=== PATIENT | female | born 1925 | race Caucasian/White ===

== ENCOUNTER 2017-02-26 03:39 | Emergency (ER) | payer OTHER ==
[~2017-02-26] VITALS: Ht 152.4 cm; Wt 60.0 kg
[2017-02-26 03:44] VITALS: Ht 152.4 cm; Wt 60.0 kg
[2017-02-26] MEDS ORDERED: SOD CHLORIDE 0.9% 500 ML IV STA (03:53)
[2017-02-26] MEDS ORDERED: ACETAMINOPHEN 500 MG TAB PO STA (03:56)
--- NOTE | 2017-02-26 04:28 | ERD ---
ER Documentation Chief Complaint Date/Time DATE: 02/26/17 TIME: 04:26 Chief Complaint fell down at [facility], R head lac, no KO HPI 89-year-old female suffered from a fall at a [facility] facility in which she hit her head. No other injuries were noticed. The patient does suffer from advanced dementia. She denies any pain currently according to staff and the patient she did not lose any consciousness. States that she feels well currently denies any chest pain shortness of breath. Does say she has some pain in the top of her head at the laceration site with no other pain most of history is taken from the paramedics and patient is unknown if the fall was witnessed. ROS All systems reviewed and are negative except as per history of present illness. Physical Exam Vitals Vital Signs Date Time Temp Pulse Resp B/P Pulse Ox O2 Delivery O2 Flow Rate FiO2 02/26/17 05:19 98.1 72 19 138/62 98 Room Air 02/26/17 03:44 97.9 58 19 144/69 97 Physical Exam Const: [] No distress Head: 1.5 cm laceration to right upper forehead without active bleeding. Eyes: Normal Conjunctiva, EOMI, PRL ENT: Normal External Ears, Nose and Mouth., Tympanic membranes without fluid or blood Neck: Full range of motion..~ No meningismus. Resp: Clear to auscultation bilaterally Cardio: Regular rate and rhythm, no murmurs Abd: Soft, non tender, non distended. Normal bowel sounds Skin: No petechiae or rashes Back: No midline or flank tenderness Ext: No cyanosis, or edema, no deformities or injury sites in any extremities , 5 out of 5 muscle strength all 4 extremities distal and proximal Neur: Awake and alert and oriented 2, cranial nerves II through XII intact, finger to nose cerebellar tests grossly within normal limits, gait not tested Psych: Normal Mood and Affect Result Diagram: 02/26/1742402/26/17424 Results 24 hrs Laboratory Tests Test 02/26/17 04:25 White Blood Count 6.010^3/ul Red Blood Count 3.8810^6/ul Hemoglobin 12.9g/dl Hematocrit 39.0% Mean Corpuscular Volume 100.5fl Mean Corpuscular Hemoglobin 33.2pg Mean Corpuscular Hemoglobin Concent 33.1g/dl Red Cell Distribution Width 12.8% Platelet Count 02576^3/UL Mean Platelet Volume 9.6fl Neutrophils % 55.5% Lymphocytes % 31.1% Monocytes % 9.2% Eosinophils % 3.3% Basophils % 0.7% Nucleated Red Blood Cells % 0.0/100WBC Neutrophils # 3.310^3/ul Lymphocytes # 1.910^3/ul Monocytes # 0.610^3/ul Eosinophils # 0.210^3/ul Basophils # 0.010^3/ul Nucleated Red Blood Cells # 0.010^3/ul Prothrombin Time 13.4Sec Prothrombin Time Ratio 1.0 INR International Normalized Ratio 1.02 Activated Partial Thromboplast Time 27.5Sec Sodium Level 136mmol/L Potassium Level 3.4mmol/L Chloride Level 103mmol/L Carbon Dioxide Level 28mmol/L Anion Gap 8 Blood Urea Nitrogen 18mg/dl Creatinine 0.73mg/dl Glucose Level 86mg/dl Calcium Level 9.2mg/dl Troponin I < 0.012ng/ml Current Medications Medications (Trade) Dose Ordered Sig/Scott Route PRN Reason Start Time Stop Time Status Last Admin Dose Admin Sodium Chloride (NS) 500 ml @ 500 mls/hr Q1H STAT IV 02/26/17 03:53 02/26/17 04:52 DC 02/26/17 04:23 Acetaminophen (Tylenol Tab) 500 mg ONCE STAT PO 02/26/17 03:56 02/26/17 03:57 DC 02/26/17 04:23 Procedures/MDM Fall of unknown cause with small subdural hemorrhage. Urine is still pending all patient may have a UTI her other laboratories are within normal limits with no signs of overwhelming infection or cardiac ischemia. He was given some IV fluid for hydration. Given Tylenol for pain. Spoke with [place] doctor METZ, who accepted transfer and will likely transfer the patient to [facility] because of her subdural bleed. Patient will be transferred for insurance reasons and is currently completely stable and pleasant. EKG interpretation: Sinus bradycardia rate of 56, left axis deviation, no ST or T-wave changes concerning for acute ischemia. services host interpretation: Normal sinus rhythm alternating with sinus bradycardia no other arrhythmias CT brain interpretation: Tiny subdural hemorrhage of right side without mass- effect or midline shift, no skull fracture. Departure Diagnosis: Primary Impression: Subdural hemorrhage Additional Impressions: Fall Head injury Condition: Stable JACOB LOUIS 13, 2017 04:27
[2017-02-26 04:56] LABS: ADD SCAN DIFF NO
[2017-02-26 04:58] LABS: BASOPHILS % 0.7 % (0.0-2.0); EOSINOPHILS # 0.2 10^3/ul (0.0-0.5); EOSINOPHILS % 3.3 % (0.0-7.0); HEMOGLOBIN 12.9 g/dl (12.0-16.0); LYMPHOCYTES # 1.9 10^3/ul (0.8-2.9); LYMPHOCYTES % 31.1 % (15.0-51.0); MEAN CORPUSCULAR HEMOGLOBIN 33.2 pg (29.0-33.0); MEAN CORPUSCULAR HGB CONC 33.1 g/dl (32.0-37.0); MEAN CORPUSCULAR VOLUME 100.5 fl (82.0-101.0); MEAN PLATELET VOLUME 9.6 fl (7.4-10.4); MONOCYTE # 0.6 10^3/ul (0.3-0.9); MONOCYTES % 9.2 % (0.0-11.0); NEUTROPHIL # 3.3 10^3/ul (1.6-7.5); NEUTROPHILS % 55.5 % (39.0-77.0); PLATELET COUNT 212 10^3/UL (140-415); RED BLOOD COUNT 3.88 10^6/ul (4.20-5.40); RED CELL DISTRIBUTION WIDTH 12.8 % (11.5-14.5)
--- NOTE | 2017-02-26 05:01 | RADRPT ---
PROCEDURE: Noncontrast CT Head. CLINICAL INDICATION: Trauma TECHNIQUE: Noncontrast CT of the head was obtained. The administered radiation dose was CTDI vol = 45 mGy, DLP = 720 mGy-cm. COMPARISON: No pertinent prior examinations were submitted for comparison. FINDINGS: The ventricles and cortical sulci are mild to moderately enlarged. There is mild to moderate decrea sed attenuation within the periventricular and subcortical white matter compatible with chronic micr ovascular changes. There is a tiny right convexity subdural hemorrhage measuring up to 3 mm in thickness. There is no mass effect. No midline shift is identified. There is no loss of woody-white differentiation to sugg est acute infarction. The orbits are within normal limits. The paranasal sinuses are well aerated. No destructive osseous lesion is identified. IMPRESSION: Tiny right convexity subdural hemorrhage which is possibly acute to subacute in chronicity. Mild to moderate diffuse parenchymal volume loss and chronic microvascular changes. RPTAT: HIKT .Tobias Morris MD, MD Date Time Electronically viewed and signed by .Tobias Morris MD, MD on 02/26/2017 05:01 .T/
[2017-02-26 05:15] LABS: ANION GAP 8 (8-16); BLOOD UREA NITROGEN 18 mg/dl (7-20); CALCIUM 9.2 mg/dl (8.4-10.2); CARBON DIOXIDE 28 mmol/L (21-31); CHLORIDE 103 mmol/L (97-110); CREATININE 0.73 mg/dl (0.44-1.00); GLUCOSE 86 mg/dl (70-220); POTASSIUM 3.4 mmol/L (3.5-5.1); SODIUM 136 mmol/L (135-144)
[2017-02-26 05:18] LABS: INR 1.02; PROTIME 13.4 Sec (12.2-14.2)
[2017-02-26 05:19] LABS: PARTIAL THROMBOPLASTIN TIME 27.5 Sec (25.0-35.0)
[2017-02-26 05:29] LABS: TROPONIN-I < 0.012 ng/ml (0.00-0.12)
[2017-02-26] MEDS ORDERED: FURO20TA3 PO (06:20)
[2017-02-26] MEDS ORDERED: DOCU-159 PO (06:27)
[2017-02-26] MEDS ORDERED: SERT25TA83 PO (06:27)
[2017-02-26] MEDS ORDERED: SENN-53 PO (06:27)
[2017-02-26] MEDS ORDERED: GUAI118S65 PO (06:27)
[2017-02-26] MEDS ORDERED: MULT1TAB59 PO (06:27)
[2017-02-26] MEDS ORDERED: MEMA10TA16 PO (06:27)
[2017-02-26 06:42] VITALS: BP 138/67; PULSE 52; RESP 18; TEMP 98
== END 2017-02-26 07:05 | disposition short-term general hospital (02) ==
LOC: E/R 03:39
DX: S06.5X0A Traumatic subdural hemorrhage without loss of consciousness, initial encounter (principal); R40.2142 Coma scale, eyes open, spontaneous, at arrival to emergency department; R40.2252 Coma scale, best verbal response, oriented, at arrival to emergency department; R40.2362 Coma scale, best motor response, obeys commands, at arrival to emergency department; S01.81XA Laceration without foreign body of other part of head, initial encounter; W01.10XA Fall on same level from slipping, tripping and stumbling with subsequent striking against unspecified object, initial encounter; Y92.89 Other specified places as the place of occurrence of the external cause
CPT/HCPCS: 36415; 70450; 80048; 84484; 85025; 85610; 85730; 93005; 99285; J7040